=== PATIENT | male | born 1945 | race Two or more races ===

== ENCOUNTER → 2024-05-04 | Outpatient (CLI) | payer MEDICARE, MEDICAID, SELFPAY ==
--- NOTE | 2024-05-04 11:37 | XR_ITS ---
Examination: Arterial duplex lower extremity study. Date and time of exam: May 04, 2024 1148 hours INDICATIONS: Bilateral leg pain beginning several years ago Findings: Duplex sonographic imaging of the lower extremity arteries using B-mode/Luu scale imaging and Doppler spectral analysis and color flow. Ankle brachial indices have been recorded. Right common femoral artery demonstrates triphasic flow. Right superficial femoral artery demonstrates biphasic flow. Right popliteal artery demonstrates biphasic flow. Right posterior tibial artery demonstrated monophasic flow. Right ankle/brachial index is 1.5. Left common femoral artery demonstrates biphasic flow. Left superficial femoral artery demonstrates biphasic flow. Left popliteal artery demonstrates biphasic flow. Left posterior tibial artery demonstrated biphasic flow. Left ankle/brachial index is 1.4. Impression: No significant peripheral obstructive arterial disease
== END | disposition home or self-care (01) ==
PROVIDERS: PCP Physician Assistant; Referring Provider Internal Medicine; Visit Provider Internal Medicine
DX: M79.606 Pain in leg, unspecified (principal)
CPT/HCPCS: 93922

== ENCOUNTER 2024-06-15 13:25 | Emergency (ER) | payer MEDICARE, MEDICAID, SELFPAY ==
[2024-06-15 13:30] VITALS: PULSE 71; RESP 16; O2SAT 96; BMI 25.0
[2024-06-15 13:49] VITALS: BP 154/92; PULSE 60; RESP 22; TEMP 36.8; O2SAT 97
--- NOTE | 2024-06-15 14:27 | XR_ITS ---
Examination: AP chest single view Technique one AP portable upright chest single view Exam date and time: June 15, 2024 1449 hours INDICATIONS: Hypotension syncope today FINDINGS: Normal heart size No lobar pneumonia or pulmonary edema Cervical orthopedic hardware IMPRESSION: No pneumonia or pulmonary edema
--- NOTE | 2024-06-15 14:35 | EDNOTE_ITS ---
ED General RME/HPI General Chief complaint: Weakness Stated complaint: AMS AND HYPOTENSIVE Time Seen by Provider: 06/15/24 13:54 Arrival date/time: 06/15/24 13:25 CC: Hypotension HPI patient presents to the ER via EMS from his clinic where he was 1 of having hypotension with a low-grade fever and chronic fatigue. Past medical history includes CKD hypotension A-fib. 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 Tay Chavez in [place], who is increased his midodrine to 15 mg 3 times a day 1 week ago. Daughter tells me if they remains hypotensive we will increase the midodrine again. Patient is to follow-up with Dr. Chavez in 3 weeks for reassessment for consideration for dialysis. Currently the patient denies chest pain shortness of breath difficulty breathing or fever. Related Data Home Medications ?Medication ?Instructions ?Recorded ?Confirmed atorvastatin 40 mg tablet (Lipitor) 40 mg PO HS #0 tabs 01/06/14 06/11/20 docusate sodium 100 mg capsule 100 mg PO BID #0 caps 01/06/14 06/11/20 (Colace) ferrous sulfate 325 mg (65 mg 325 mg PO BIDWM #0 tabs 01/06/14 06/11/20 iron) tablet (Feosol) tamsulosin 0.4 mg capsule (Flomax) 0.4 mg PO QDAY ##0 01/06/14 06/11/20 Previous Rx's ?Medication ?Instructions ?Recorded dicyclomine 20 mg tablet 20 mg PO BID PRN abdominal pain 06/11/20 #20 tabs ibuprofen 800 mg tablet 800 mg PO TID PRN pain #30 tabs 06/11/20 ibuprofen 600 mg tablet 600 mg PO Q8H PRN pain #20 tabs 12/25/21 Allergies Allergy/AdvReac Type Severity Reaction Status Date / Time NKA* Allergy Uncoded 01/06/14 11:25 Review of Systems Review of Systems Narrative Review of Systems: GEN: No fever, no chills, no weight loss EYES: No discharge, no visual changes, no pain HEENT: No ear pain, no congestion, no sore throat PULM: No shortness of breath, no cough, no congestion CV: No chest pain, no dyspnea on exertion, no palpitations GI: No nausea, no vomiting, no diarrhea, no pain, no constipation : No frequency, no urgency, no dysuria MUSC/SKEL: No joint pain, no back pain SKIN: No rash PSYCH: No hallucinations, no depression HEME/LYMPH: No easy bleeding or bruising tendencies NEURO: + weakness, no headache Past Medical History Past Medical History CARDIAC: Positive Hypercholesterolemia; Negative Congestive Heart Failure RESPIRATORY: Negative Chronic Obstructive Pulmonary Disease (COPD) GENITOURINARY: Positive Benign Prostatic Hyperplasia; Negative Renal Disease ENDOCRINE: Negative Diabetes Mellitus Type 1 or Diabetes Mellitus Type 2 Social History SMOKING STATUS: Never smoker ED Exam Narrative Physical exam: [General: Not in any acute distress Head normocephalic HEENT: Within acceptable limits Neck is supple nontender Chest equal chest rise nontender to palpation Respiratory: Clear to auscultation no wheezes crackles or rubs CV: Rate rhythm is regular no murmurs rubs or clicks Abdomen is soft nontender no masses positive bowel sounds all 4 quadrants Back: No CVA tenderness no spinous process tenderness from cervical spine thoracic and lumbar spine Skin: Intact no petechiae rash induration ulceration or crepitus Extremities: Moving all extremity against resistance cap refill less than 2 seconds neurosensory intact Neuro: Awake alert oriented x2, person and place, Glascow coma 15 no focal deficits] Course Quality Measures none Orders Category Date Time Status Bedside COVID-19 Antigen Test NOW Care 06/15/24 14:28 Active Bedside Influenza A&B Antigen Test NOW Care 06/15/24 14:29 Completed EKG (ED ONLY) *Do not use* NOW Care 06/15/24 13:42 Completed EKG (ED Only) Stat Exams 06/15/24 13:42 Stop Req XR chest 1V Stat Exams 06/15/24 14:27 Completed B-Type Natriuretic Peptide Stat Lab 06/15/24 14:45 Completed CBC Stat Lab 06/15/24 14:45 Completed Comprehensive Metabolic Panel Stat Lab 06/15/24 14:45 Completed Drug Screen,Urine Stat Lab 06/15/24 14:19 Ordered LDH (Lactate Dehydrogenase) Stat Lab 06/15/24 14:45 Completed Magnesium Stat Lab 06/15/24 14:45 Completed Partial Thromboplastin Time Stat Lab 06/15/24 14:45 Completed Prothrombin Time with INR Stat Lab 06/15/24 14:45 Completed Troponin I Stat Lab 06/15/24 14:45 Completed Urinalysis Stat Lab 06/15/24 14:19 Ordered hydrALAZINE INJ [Apresoline Inj] Med 06/15/24 15:42 Discontinued 10 mg IV X1 ONE Vital Signs Vital signs: Vital Signs Temperature 98.2 F 06/15/24 13:49 Pulse Rate 60 06/15/24 13:49 Respiratory Rate 22 H 06/15/24 13:49 Blood Pressure 154/92 H 06/15/24 13:49 Pulse Oximetry (%) 97 06/15/24 13:49 Oxygen Delivery Method Room Air 06/15/24 13:49 [facility] Patient data External records reviewed:: [facility] previous records and EMS form Clinical information provided by:: patient, EMS and family Social determinants that could affect healthcare access:: none Patient has the following chronic illnesses:: CKD A-fib hypotension cough How is presenting disease/condition affected by chronic disease/condition?: e xacerbated by Evaluation data The following diagnostics were reviewed and interpreted by me:: lab results, radiology exam(s) and EKG tracing(s) Lab and/or radiology exams considered but not ordered:: EKG performed at 1349 shows a ventricular rate of 6 7 QRS of 88 QTc of 424 A-fib with controlled ventricular rate baseline wander. CBC shows leukocytosis of 16,000 no anemia thrombocytopenia CMP shows sodium 133 and potassium of 4.7 chloride of 102 CO2 of 23.4 BUN of 35 creatinine 2.1 with a glucose of 165 Lipase is 61 UA is negative for urinary tract infection, with 3+ protein. COVID positive Coags show an INR of 1.2 Troponin is negative BNP is 244 Interpretation Summary: Most the patient's symptoms are related to being COVID-positive patient will be discharged home with no other acute finding Medications Medications considered but not ordered:: None Medication administrations:: Medication Administration History Discontinued Medications Hydralazine HCl (Hydralazine Inj 20 Mg/Ml Vial) 10 mg IV X1 ONE Stop: 06/15/24 15:43 None Consultations Consultation(s) initiated? (list below): No Diagnosis Differential Diagnosis ED Complaint MDM: COVID-pneumonia CKD Most likely diagnosis given after review of the tests above:: COVID Admission Indicated Admission indicated?: not indicated Explain why admission is indicated or not indicated:: Stable for discharge Admission Request Was there a request for admission?: No Admission Attestation Admission request attestation: None Disposition Plan Disposition Plan: Discharge Discharge Attestation Discharge Attestation: The patient and all family members were given an opportunity to ask questions and understood the discharge instructions. Discharge instructions specifically effects, indications for sooner follow up or return to the emergency department, and the expected course of current diagnosis. Patient condition: Stable Medical Decision Making Differential Diagnosis Differential Diagnosis: COVID-pneumonia CKD Lab Data 06/15/24 14:45 06/15/24 14:45 Labs: Lab Results 06/15/24 Range/Units 14:45 WBC 10.2 (3.8-10.6) Thou/mm3 RBC 4.43 L (4.50-5.90) Miln/mm3 Hgb 13.5 (13.5-16.0) g/dL Hct 40.6 L (41.0-53.0) % MCV 92 (80-100) fL MCH 30.5 (25.0-35.0) pg MCHC 33.3 (31.0-37.0) g/dl RDW Std Deviation 50.1 H (35.1-43.9) fL Plt Count 160 (140-440) Thou/mm3 Neut % (Auto) 72 (37-80) % Lymph % (Auto) 15 (10-50) % Imperial % (Auto) 11 (0-12) % Eos % (Auto) 1 (0-10) % Baso % (Auto) 1 (0-2.5) % Neut # (Auto) 7.4 (1.8-7.7) Thou/mm3 Lymph # (Auto) 1.5 (1.0-4.8) Thou/mm3 Imperial # (Auto) 1.1 H (0.0-0.8) Thou/mm3 Eos # (Auto) 0.1 (0.0-0.5) Thou/mm3 Baso # (Auto) 0.1 (0.0-0.2) Thou/mm3 Immature Gran # (Auto) 0.06 H (0.00-0.00) Thou/mm3 Absolute Nucleated RBC 0.00 (0.00-0.00) Thou/mm3 Immature Gran % 1 H (0-0) % Nucleated RBC % 0 (0) /100 WBC PT 12.5 H (9.0-12.2) Seconds INR 1.2 (0.9-1.3) APTT 28.2 (22.0-36.0) Seconds Sodium 137 (136-145) mMol/L Potassium 4.5 (3.4-5.1) mMol/L Chloride 103 (98-107) mMol/L Carbon Dioxide 25.5 (20.0-31.0) mMol/L Anion Gap 9 (7-16) BUN 36 H (9-23) mg/dL Creatinine 2.7 H (0.6-1.3) mg/dL Estim Creat Clear Calc 22.2 L (>60) mL/min eGFR 24 L (60 - ) See Note BUN/Creatinine Ratio 13 (12-20) Ratio Glucose 101 (74-106) mg/dL Calculated Osmolality 282 (275-295) Calcium 9.2 (8.3-10.6) mg/dL Corrected Calcium 9.2 (8.5-10.1) mg/dL Magnesium 1.8 (1.6-2.6) mg/dL Total Bilirubin 1.0 (0.3-1.2) mg/dL AST 21 (0-34) U/L ALT 12 (10-49) U/L Alkaline Phosphatase 97 (46-116) U/L Lactate Dehydrogenase 186 (120-246) U/L Troponin I < 0.020 (0.0-0.045) ng/mL B-Natriuretic Peptide 244 H (0-100) pg/mL Total Protein 7.6 (5.7-8.2) gm/dL Albumin 4.1 (3.4-4.8) gm/dL Globulin 3.5 (2.3-3.5) gm/dL Albumin/Globulin Ratio 1.2 (1.2-2.2) Discharge Plan Plan Patient Disposition: HOME (Self Care) Patient condition on transfer: Stable Prescriptions/Referrals Prescriptions/Med Rec: No Action atorvastatin [Lipitor] 40 MG tablet 40 mg PO HS Qty: 0 tamsulosin [Flomax] 0.4 MG capsule,extended release 24hr 0.4 mg PO QDAY Qty: 0 ferrous sulfate [Feosol] 1 TAB tablet 325 mg PO BIDWM Qty: 0 docusate sodium [Colace] 100 MG capsule 100 mg PO BID Qty: 0 dicyclomine 20 mg tablet 20 mg PO BID PRN (Reason: abdominal pain) Qty: 20 0RF ibuprofen 800 mg tablet 800 mg PO TID PRN (Reason: pain) Qty: 30 0RF ibuprofen 600 mg tablet 600 mg PO Q8H PRN (Reason: pain) Qty: 20 0RF Referrals: Damien Ruby MD [Primary Care Provider] - In 1 week Problem List Clinical Impression: COVID Patient/Caregiver Discharge Instructions Education Materials: COVID-19 Home Care Print Language: Czech Stand Alone Forms: Elza Award Info., Patient Portal Info Letter PA/PELLETIZER TENDER Supervising Physician PA/PELLETIZER TENDER Supervising Physician: Shlomo Harris ENP
[2024-06-15 14:59] VITALS: BP 131/69; PULSE 71; RESP 19; TEMP 36.6; O2SAT 98
[2024-06-15 15:00] LABS: Basophils # (Auto) 0.1 Thou/mm3 (0.0-0.2); Basophils % (Auto) 1 % (0-2.5); Eosinophils # (Auto) 0.1 Thou/mm3 (0.0-0.5); Eosinophils % (Auto) 1 % (0-10); Hematocrit 40.6 % (41.0-53.0); Hemoglobin 13.5 g/dL (13.5-16.0); Immature Granulocytes % (Auto) 1 % (0-0); Immature Granulocytes Auto 0.06 Thou/mm3 (0.00-0.00); Lymphocytes # (Auto) 1.5 Thou/mm3 (1.0-4.8); Lymphocytes % (Auto) 15 % (10-50); Mean Corpuscular HGB Conc 33.3 g/dl (31.0-37.0); Mean Corpuscular Hemoglobin 30.5 pg (25.0-35.0); Mean Corpuscular Volume 92 fL (80-100); Monocytes # (Auto) 1.1 Thou/mm3 (0.0-0.8); Monocytes % (Auto) 11 % (0-12); Neutrophils # (Auto) 7.4 Thou/mm3 (1.8-7.7); Neutrophils % (Auto) 72 % (37-80); Nucleated Red Blood Cell % 0 /100 WBC (0); Platelet Count 160 Thou/mm3 (140-440); RDW Standard Deviation 50.1 fL (35.1-43.9); Red Blood Count 4.43 Miln/mm3 (4.50-5.90); White Blood Count 10.2 Thou/mm3 (3.8-10.6)
[2024-06-15 15:14] LABS: INR 1.2 (0.9-1.3); Partial Thromboplastin Time 28.2 Seconds (22.0-36.0); Prothrombin Time 12.5 Seconds (9.0-12.2)
[2024-06-15 15:16] LABS: B-Type Natriuretic Peptide 244 pg/mL (0-100)
[2024-06-15 15:18] LABS: Alanine Aminotransferase 12 U/L (10-49); Albumin, Serum 4.1 gm/dL (3.4-4.8); Albumin/Globulin Ratio 1.2 (1.2-2.2); Alkaline Phosphatase 97 U/L (46-116); Anion Gap 9 (7-16); Aspartate Amino Transferase 21 U/L (0-34); BUN/Creatinine Ratio 13 Ratio (12-20); Blood Urea Nitrogen 36 mg/dL (9-23); Calcium 9.2 mg/dL (8.3-10.6); Calcium (Corrected) 9.2 mg/dL (8.5-10.1); Carbon Dioxide 25.5 mMol/L (20.0-31.0); Chloride 103 mMol/L (98-107); Creatinine (Component) 2.7 mg/dL (0.6-1.3); Estimated Creatinine Clearance 22.2 mL/min (>60); Globulin 3.5 gm/dL (2.3-3.5); Glucose 101 mg/dL (74-106); LDH (Lactate Dehydrogenase) 186 U/L (120-246); Magnesium 1.8 mg/dL (1.6-2.6); Osmolality,Calculated 282 (275-295); Potassium 4.5 mMol/L (3.4-5.1); Sodium 137 mMol/L (136-145); Total Protein 7.6 gm/dL (5.7-8.2); Troponin I < 0.020 ng/mL (0.0-0.045); eGFR 24 See Note
[2024-06-15 15:36] VITALS: BP 134/77; PULSE 76; RESP 18; TEMP 36.8; O2SAT 97
[2024-06-15 16:09] VITALS: BP 118/91; PULSE 90; RESP 16; TEMP 37; O2SAT 97
== END 2024-06-15 16:05 | disposition home or self-care (01) ==
PROVIDERS: Registered Nurse General Practice; Emergency Provider Emergency Medicine; PCP Family Medicine
DX: U07.1 COVID-19 (principal); I48.91 Unspecified atrial fibrillation
CPT/HCPCS: 36415; 71045; 80053; 80307; 81001; 83615; 83735; 83880; 84484; 85025; 85610; 85730; 87400; 87811; 93005; 99283

== ENCOUNTER → 2024-09-08 | Outpatient (CLI) | payer MEDICARE, MEDICAID, SELFPAY ==
--- NOTE | 2024-09-08 | XR_ITS ---
Examination: Lumbar spine 3 views TECHNIQUE: AP lateral coned lateral lower lumbar spine 3 views Exam date and time: September 08, 2024 1238 hours Comparison October 02, 2023 INDICATIONS: Status post lumbar fusion one year ago FINDINGS: Transpedicular lumbar fusion L3-L5 with anatomic alignment Stable chronic compressed L4 vertebral body No acute lumbar fracture Moderate disc narrowing L5-S1 IMPRESSION: Satisfactory and stable alignment transpedicular lumbar fusion L3-L5
== END | disposition home or self-care (01) ==
PROVIDERS: PCP Physician Assistant; Referring Provider Podiatrist; Visit Provider Podiatrist
DX: M43.26 Fusion of spine, lumbar region (principal); Z98.1 Arthrodesis status
CPT/HCPCS: 72100